=== PATIENT | female | born 1960 | race Caucasian/White ===

== ENCOUNTER 2017-10-19 19:54 | Emergency (ER) | payer MEDICARE, SELFPAY ==
[2017-10-19 19:55] VITALS: BP 157/89; PULSE 112; RESP 20; TEMP 37.2; O2SAT 100; BMI 19.2
--- NOTE | 2017-10-19 20:06 | CT_ITS ---
STUDY: CT ABDOMEN AND PELVIS WITHOUT CONTRAST REASON FOR EXAM: Female, 57 years old. Left flank pain RADIATION DOSAGE (If Supplied By Facility): CTDIvol = ( 6.04 ) mGy, DLP = ( 305.04 ) mGycm TECHNIQUE: Transaxial images were obtained from the dome of the diaphragm to the symphysis pubis without oral contrast, and without intravenous contrast. Sagittal and coronal images were reconstructed. Individualized dose optimization techniques were used for this CT. COMPARISON: None. FINDINGS: The visualized lung bases are unremarkable. The visualized portions of the heart are within normal limits. Normal liver. There are surgical clips in the gallbladder fossa consistent with a prior cholecystectomy. Normal spleen. Normal pancreas. Normal bilateral adrenal glands. Normal right kidney. Normal left kidney. Normal visualized stomach. Normal small intestine. Left colonic wall is circumferentially thickened and possibly somewhat increased inflamed. Increased stool. The appendix is visualized and appears normal. Normal abdominal aorta. Normal inferior vena cava. Normal retroperitoneum. Normal urinary bladder. Normal visualized uterus. Normal abdominal wall. Normal osseous structures. CT/Abdomen/Pelvis without Cont IMPRESSION: Possible acute nonspecific left colitis Electronically Signed: Den Pike MD at 20:58 EDT , Service support ,
[2017-10-19] MEDS: Ondansetron 4 MG/2 ML Vial IV (20:20)
[2017-10-19] MEDS: 0.9% Normal Saline 1,000 ML 250 ML IV (20:20)
[2017-10-19] MEDS: Ketorolac 30 MG/ML Syringe IV (20:20)
[2017-10-19] MEDS: Morphine 2 MG/ML Syringe IV ×2 (20:20→21:31)
[2017-10-19 20:22] LABS: Bacteria 0 SEEN /hpf (None Seen); Mucous, Urine 0 SEEN /hpf (<or=2+); White Blood Cells 0 SEEN /hpf (0-5)
[2017-10-19 20:56] LABS: Color, Urine Yellow (Yellow); Glucose, Dipstick Normal (Normal); Ketone-Dipstick Negative (Negative); Leukocyte Esterase-Dipstick 25 /ul (Negative); Nitrite-Dipstick Negative (Negative); Occult Blood-Urine 250 /ul (Negative); Protein-Dipstick Negative (Negative); Urine Bilirubin Dipstick Negative (Negative); Urine Clarity Clear (Clear); Urine Urobilinogen 1 mg/dl (Normal)
[2017-10-19 20:58] LABS: Anion Gap 10 (5-15); BUN 7 mg/dL (7-18); BUN/Creat Ratio 7.8 RATIO (10-20); Calcium,Total 8.9 mg/dL (8.5-10.1); Chloride 100 mmol/L (98-107); EST Glomerular Filtration Rate 68 mL/min (>60); Est Glom Filt Rate - Afr Amer 83 mL/min (>60); Estimated Creatinine Clearance 55.31 ml/min; Glucose 125 mg/dL (74-106); Potassium 3.3 mmol/L (3.5-5.1); Sodium Level 135 mmol/L (136-145)
[2017-10-19 21:00] LABS: Red Blood Cells-Urine 0-5 SEEN /hpf (0-5); Squamous Epithelial Cells - UA 0-5 SEEN /hpf (5-10)
[2017-10-19 21:00] LABS: Absolute Lymphocyte Count 0.99 X10^3/ul (0.83-4.51); Absolute Neutrophil Count 17.4 X10^3/uL (2.0-7.7); Basophil# 0.05 X10^3/uL; Basophil% 0.2 % (0-1); Eosinophil# 0.08 X10^3/uL; Eosinophils% 0.4 % (0-5); Hematocrit 42.9 % (37-47); Hemoglobin 15.5 g/dl (12.0-15.0); Lymphocyte # 0.99 X10^3/ul (4.0); Lymphocyte % 4.9 % (19-41); Mean Corp Hgb Conc 36.1 g/gl (32-36); Mean Corpuscular Volume 91.5 fL (81-99); Mean Platelet Vol. 10.1 fl (6.2-12.0); Monocyte# 1.85 X10^3/uL; Monocyte% 9.1 % (0-10); Neutrophil % 85.3 % (47-70); Platelet Count 283 K/mm3 (150-450); RBC Distribution Width CV 11.4 % (11.6-14.6); RBC Distribution Width SD 38.1 fl (35.1-43.9); Red Blood Count 4.69 M/mm3 (4.2-5.4); White Blood Count 20.4 K/mm3 (4.4-11.0)
[2017-10-19 21:32] LABS: Differential Comment SCANNED; Differential Indicated SCAN CRITERIA MET; POSITIVE COUNT NO; POSITIVE DIFFERENTIAL YES; POSITIVE MORPHOLOGY NO
--- NOTE | 2017-10-19 22:31 | ED.DCSUM_ITS ---
- ER Visit Summary Date of Service: 10/19/17 Chief Complaint: Flank pain History of Present Illness: The patient is a 57 F with dysuria and frequency for the past couple of days. Today she noted some left lower quadrant pain that worsened. Patient states she also feels like she is constipated. At baseline she only has bowel movements every 3 or 4 days. She has chronic back pain that is unchanged from prior. She had subjective fever. No chills noted. Prior abdominal surgeries include appendectomy and cholecystectomy. Physical Examination: Blood pressure is 157/89, temperature 98.9, heart rate 112 , respiratory rate 20, pulse ox 100% on room air. Head neck examination is unremarkable. Heart is slightly tachycardic and regular. Lung sounds are clear. Abdomen is soft with mild tenderness in the left lower quadrant. There is no guarding or rebound. Active bowel sounds are noted. Back examination reveals no reproducible CVA tenderness. Test Results: CBC was a white count of 20.4 with 85% neutrophils. Hemoglobin is 15.5. Chemistry studies reveal sodium of 135 and a potassium of 3.3. Urinalysis does show 0-5 RBCs and 0-[address] the flank shows possible acute nonspecific colitis. Emergency Department Course and Treatment: Patient is treated Toradol, morphine , Zofran, and IV fluids. On repeat evaluation she is resting comfortably. We discussed CT findings of colitis and her elevated white blood cell count. We will treat her with Cipro and Flagyl. If the patient spikes a fever or worsens in any way she is to return for repeat evaluation. She understands and is in agreement. Treatment Plan: [] Disposition: Discharge Impression: Colitis This note was generated with [employer] dictation software. It may contain incorrect words, spelling, and punctuation that were not noted in review of the chart prior to signing ED Disposition - Plan for ED Patient: Chief Complaint: Flank Pain Referrals: Susy Baker MD [Primary Care Provider] -
--- NOTE | 2017-10-19 22:32 | ED.DEP ---
ED Disposition - Plan for ED Patient: Disposition: Home or Assisted Living Chief Complaint: Flank Pain Instructions: ED Gastroenteritis Bacterial Prescriptions: Metronidazole [Flagyl] 500 mg PO Q8H #21 tablet Ciprofloxacin [Cipro] 500 mg PO BID #14 tablet Referrals: Susy Baker MD [Primary Care Provider] - 5-7 Days
[2017-10-19] MEDS: Ciprofloxacin 500 MG Tablet PO (22:46)
[2017-10-19] MEDS: metroNIDAZOLE 500 MG Tablet PO (22:46)
[2017-10-19 22:48] VITALS: BP 136/88; PULSE 99; RESP 18; O2SAT 100
== END 2017-10-19 22:51 | disposition home or self-care (01) ==
PROVIDERS: Emergency Provider Emergency Medicine; Family Provider Internal Medicine; PCP Internal Medicine
DX: K52.9 Noninfective gastroenteritis and colitis, unspecified (principal); Z90.49 Acquired absence of other specified parts of digestive tract; G89.29 Other chronic pain; M54.9 Dorsalgia, unspecified; I10 Essential (primary) hypertension
CPT/HCPCS: 74176; 80048; 81001; 85025; 99283; J7030; A4216; J2405

== ENCOUNTER 2020-07-07 10:12 | Outpatient (RCR) | payer MEDICARE, SELFPAY ==
[2020-07-07] MEDS: COVID-19 VACC, MRNA(PFIZER)/PF 30 MCG/0.3 ML SYRINGE IM (12:14)
[2020-07-28] MEDS: COVID-19 VACC, MRNA(PFIZER)/PF 30 MCG/0.3 ML SYRINGE IM (12:00)
== END 2020-09-29 23:59 ==
LOC: IMMUN 10:12
PROVIDERS: PCP Internal Medicine; Visit Provider Family Medicine
DX: Z23 Encounter for immunization (principal)
CPT/HCPCS: 0001A; 0002A; 91300

== ENCOUNTER 2021-05-18 16:42 | Emergency (ER) | payer MEDICARE, SELFPAY ==
[2021-05-18 16:42] VITALS: BP 127/59; PULSE 102; RESP 18; TEMP 36.6; O2SAT 95; BMI 17.3
[2021-05-18 17:05] VITALS: BP 122/73; PULSE 91; RESP 16; TEMP 37; O2SAT 96
--- NOTE | 2021-05-18 17:07 | EX.ED.DYSGE1 ---
HPI History of Present Illness Chief Complaint: Nausea/Vomiting Informant: patient Onset/Context/Timing Onset: Days (18) Context: Gradual Onset Timing: Continuous Quality: Watery Location: Diarrhea Worsened by: Nothing Relieved by: Nothing Narrative Narrative: Patient presents with nausea, vomiting, and diarrhea for the past 18 days. Patient states her diarrhea is watery. Patient states she was on a course of clindamycin approximately 1 month ago. Patient states she has a history of C. difficile. Patient states she went to the urgent care today and had labs drawn which showed a hypokalemia. Patient was then referred to the emergency department. Patient states she was able to give a stool specimen at the urgent care and they are checking it for C. difficile. Patient states she was told to come into the emergency department for IV fluids. PFSH PFSH Home Medications bupropion HCl 150 mg PO DAILY 10/19/17 [History Last Taken Unknown] ciprofloxacin HCl 500 mg PO BID #14 tablet 10/19/17 [Rx Last Taken Unknown] levothyroxine 88 mcg PO DAILY 10/19/17 [History Last Taken Unknown] meloxicam 15 mg PO DAILY 10/19/17 [History Last Taken Unknown] metronidazole 500 mg PO Q8H #21 tab 10/19/17 [Rx Last Taken Unknown] trazodone 150 mg PO QHS 10/19/17 [History Last Taken Unknown] Allergy/AdvReac Type Severity Reaction Status Date / Time Penicillins [PCN] Allergy PT UNSURE Verified 05/18/21 16:47 OF REACTION Sulfa (Sulfonamide Allergy PT UNSURE Verified 05/18/21 16:47 Antibiotics) OF REACTION Surgical History Hx of appendectomy Social History Smoking Status: Former smoker ROS ROS ED Constitutional Constitutional ED: Denies chills or fever(s) Eyes Eyes: Denies blurry vision or change in vision ENT ENT ED: Denies rhinorrhea or sore throat Cardiovascular Cardiovascular: Denies chest pain or palpitations Respiratory/Chest Respiratory/Chest: Denies cough or dyspnea Gastrointestinal Gastrointestinal: Reports diarrhea, nausea and vomiting Genitourinary Genitourinary ED: Denies dysuria or hematuria Musculoskeletal Musculoskeletal: Reports back pain; Denies neck pain Integumentary Denies abscess or rash Neurologic Neurologic: Denies headache(s) or weakness Allergic/Immunologic Allergic/Immunologic ED: Denies mouth swelling or urticaria EXAM Physical Exam Const Vital Signs: 05/18/21 16:42 05/18/21 17:05 05/18/21 19:55 Temperature 97.8 F 98.6 F 98.5 F Temperature Source Temporal Temporal Temporal Pulse Rate 102 H 91 100 Respiratory Rate 18 16 25 H Blood Pressure 127/59 H 122/73 H 130/76 H Blood Pressure Mean 81 89 94 Pulse Ox 95 96 96 Oxygen Delivery Method Room Air Room Air Room Air Positive well nourished and well developed General Appearance ED: well developed HEENT Reports moist mucous membranes Neck supple and no JVD Resp normal respiratory effort and clear to auscultation bilaterally Cardio regular rate, regular rhythm and no murmurs GI normal to inspection, nondistended, normoactive bowel sounds Palpation: soft and tender epigastric, LLQ, RLQ, LUQ, RUQ, periumbilical and suprapubic; Negative for guarding or rebound tenderness present Extremity normal to inspection General Extremety ED: Negative for edema or tenderness General Extremity: Negative for edema Neuro oriented x3, CN's II-XII intact bilaterally and no sensory deficits noted Sensorium / Orientation: alert Motor Exam: strength 5/5 throughout Psych mental status grossly normal Skin no rashes or lesions noted MDM MDM MDM Narrative Medical decision making narrative: Patient was given IV fluids and Zofran. CBC showed elevated platelets of 504 but the remainder was within normal limits. Comprehensive metabolic profile showed a potassium of 2.3. Patient was given 40 mEq of oral potassium and 20 mEq of IV potassium here. Urinalysis does not show any evidence of urinary tract infection. Patient states she has a prescription for oral potassium at home. Patient was instructed to take this as prescribed. Patient was instructed to follow-up with her primary care physician for results of her stool studies. Patient was instructed to return if worse in any way. Patient understood and was agreeable with this plan. All questions were Lab Data Attestation: I reviewed the patient's lab results. Labs: Laboratory Results - last 24 hr 05/18/21 05/18/21 05/18/21 17:19 17:19 18:15 WBC 10.4 RBC 4.23 Hgb 13.5 Hct 36.8 L MCV 87.0 MCH 31.9 MCHC 36.7 H RDW Std Deviation 35.0 L RDW Coeff of Farshad 11.2 L Plt Count 504 H MPV 8.5 Immature Gran % (Auto) 1.400 H Neut % (Auto) 71.5 H Lymph % (Auto) 15.3 L [place] % (Auto) 10.3 H Eos % (Auto) 1.0 Baso % (Auto) 0.5 Absolute Neuts (auto) 7.4 Absolute Lymphs (auto) 1.59 Nucleated RBC % 0 Differential Comment SCANNED Sodium 132 L Potassium 2.3 L* Chloride 92 L Carbon Dioxide 32.0 Anion Gap 8 BUN 8 Creatinine 0.71 Estim Creat Clear Calc 62.92 Est GFR (MDRD) Af Amer 108 Est GFR (MDRD) Non-Af 89 BUN/Creatinine Ratio 11.3 Glucose 108 H Calcium 8.1 L Total Bilirubin 0.60 AST 31 ALT 23 Alkaline Phosphatase 83 Total Protein 6.3 L Albumin 2.3 L Globulin 4.0 Albumin/Globulin Ratio 0.6 L Urine Color Yellow Urine Clarity Clear Urine pH 7.0 Ur Specific [place] 1.005 Urine Protein Negative Urine Glucose (UA) Normal Urine Ketones 5 H Urine Occult Blood 10 H Urine Nitrite Negative Urine Bilirubin Negative Urine Urobilinogen Normal Ur Leukocyte Esterase Negative Urine RBC 0 SEEN Urine WBC 0 SEEN Ur Squamous Epith Cells 0 SEEN Urine Bacteria 0 SEEN Urine Mucus 0 SEEN Discharge Plan Triage Chief Complaint: Nausea/Vomiting ED Provider: Armand Costa Dx/Rx/DC Orders Clinical Impression: Hypokalemia, Diarrhea Instructions: ED Diarrhea, Unknown Cause, ED Hypokalemia Prescriptions: No Action meloxicam 15 MG tablet 15 mg PO DAILY RF: 0 levothyroxine 88 MCG tablet 88 mcg PO DAILY RF: 0 trazodone 150 MG tablet 150 mg PO QHS RF: 0 bupropion HCl 150 MG Tab.Er.24h 150 mg PO DAILY RF: 0 ciprofloxacin HCl 500 MG tablet 500 mg PO BID Qty: 14 RF: 0 metronidazole 500 MG tablet 500 mg PO Q8H Qty: 21 RF: 0 Primary Care Provider: Susy Baker Referrals: Susy Baker MD [Primary Care Provider] - 3-5 Days Disposition Disposition: Home, Self Care
[2021-05-18] MEDS: Ondansetron 4 MG/2 ML Vial IV (17:22)
[2021-05-18] MEDS: 0.9% Normal Saline 1,000 ML 1000 ML IV (17:22)
[2021-05-18 17:33] LABS: Absolute Lymphocyte Count 1.59 X10^3/uL (0.83-4.51); Absolute Neutrophil Count 7.4 X10^3/uL (2.0-7.7); Basophil# 0.05 X10^3/uL; Basophil% 0.5 % (0-1); Hematocrit 36.8 % (37-47); Hemoglobin 13.5 g/dL (12.0-15.0); Lymphocyte # 1.59 X10^3/ul (0.83-4.51); Lymphocyte % 15.3 % (19-41); Mean Corp Hgb Conc 36.7 g/dL (32-36); Mean Corpuscular Hgb 31.9 pg (27.0-32.0); Mean Platelet Vol. 8.5 fl (6.2-12.0); Monocyte# 1.07 X10^3/uL; Monocyte% 10.3 % (0-10); NRBC Flagged by Analyzer 0 % (0-5); Neutrophil # 7.41 X10^3/uL (2.7-7.7); Neutrophil % 71.5 % (47-70); POSITIVE MORPHOLOGY YES; Platelet Count 504 K/mm3 (150-450); RBC Distribution Width CV 11.2 % (11.6-14.6); Red Blood Count 4.23 M/mm3 (4.2-5.4); White Blood Count 10.4 K/mm3 (4.4-11.0)
[2021-05-18 17:41] LABS: Differential Indicated SCAN CRITERIA MET
[2021-05-18 17:58] LABS: ALB/GLOB Ratio 0.6 RATIO (0.9-2.4); AST(SGOT) 31 U/L (15-37); Alanine Aminotransfer ALT/SGPT 23 U/L (13-56); Albumin, Serum 2.3 g/dL (3.2-5.0); Alkaline Phosphatase 83 U/L (45-117); Anion Gap 8 (5-15); BUN 8 mg/dL (7-18); BUN/Creat Ratio 11.3 RATIO (10-20); Calcium,Total 8.1 mg/dL (8.5-10.1); Chloride 92 mmol/L (98-107); Creatinine, Serum 0.71 mg/dL (0.55-1.02); EST Glomerular Filtration Rate 89 mL/min (>60); Est Glom Filt Rate - Afr Amer 108 mL/min (>60); Estimated Creatinine Clearance 62.92 ml/min; Glucose 108 mg/dL (74-106); Potassium 2.3 mmol/L (3.5-5.1); Protein, Total 6.3 g/dL (6.4-8.2); Sodium Level 132 mmol/L (136-145)
[2021-05-18 18:21] LABS: Differential Comment SCANNED
[2021-05-18] MEDS: Potassium Chloride 10mEq/100mL 10 MEQ/100 ML IV.SOLN. 100 MEQ IV BOLUS ×2 (18:28→19:32)
[2021-05-18 18:56] LABS: Bacteria 0 SEEN /hpf (None Seen); Mucous, Urine 0 SEEN /hpf (<or=2+); Red Blood Cells-Urine 0 SEEN /hpf (0-5); Squamous Epithelial Cells - UA 0 SEEN /hpf (5-10); White Blood Cells 0 SEEN /hpf (0-5)
[2021-05-18 18:59] LABS: Color, Urine Yellow (Yellow); Glucose, Dipstick Normal (Normal); Ketone-Dipstick 5 mg/dl (Negative); Leukocyte Esterase-Dipstick Negative /ul (Negative); Nitrite-Dipstick Negative (Negative); Occult Blood-Urine 10 /ul (Negative); Protein-Dipstick Negative (Negative); Specific Gravity, Urine 1.005 (1.002-1.030); Urine Bilirubin Dipstick Negative (Negative); Urine Clarity Clear (Clear); Urine Urobilinogen Normal (Normal)
[2021-05-18] MEDS: Potassium Chloride Oral Tablet 20 MEQ 40 MEQ PO (19:54)
[2021-05-18 19:55] VITALS: BP 130/76; PULSE 100; PULSE 97; RESP 20; RESP 25; TEMP 36.7; TEMP 36.9; O2SAT 96; O2SAT 98
== END 2021-05-18 20:21 | disposition home or self-care (01) ==
PROVIDERS: Emergency Provider Emergency Medicine; PCP Internal Medicine; Visit Provider Emergency Medicine
DX: R11.2 Nausea with vomiting, unspecified (principal); R19.7 Diarrhea, unspecified; E87.6 Hypokalemia; Z86.19 Personal history of other infectious and parasitic diseases; Z87.891 Personal history of nicotine dependence
CPT/HCPCS: 80053; 81001; 85025; 96361; 96374; 99284; J7030; J7050; A4216; J2405